=== PATIENT | male | born 1970 | race African-American/Black ===

== ENCOUNTER 2019-01-10 09:07 | Day surgery (SDC) | payer OTHER ==
[~2019-01-10] VITALS: Ht 175.3 cm; Wt 89.5 kg
[~2019-01-10 09:07] MED LIST: LR 1,000 ML IV ONE; NAPR-885 PO; OMEP-218 PO
[2019-01-10] MEDS ORDERED: LIDOCAINE 2% MDV 20 ML VIAL As Ordered ONE (09:55)
[2019-01-10] MEDS ORDERED: dexameTHASONE 4 MG/ML 1ML VIAL (J1100) As Ordered ONE ×2 (09:55→10:34)
[2019-01-10] MEDS ORDERED: BUPIVACAINE HCL 0.5% 30 ML VIAL As Ordered ONE (09:56)
[2019-01-10] MEDS ORDERED: BACITRACIN PWD 50,000 UNITS VIAL As Ordered ONE (09:56)
[2019-01-10] MEDS ORDERED: NEOSPORIN GU IRRIG 20 ML VIAL As Ordered ONE (09:56)
[2019-01-10] MEDS ORDERED: HumaLOG INSULIN (NovoLOG) PER UNIT As Ordered ONE (10:02)
[2019-01-10] MEDS ORDERED: HumaLOG INSULIN (NovoLOG) PER UNIT SC ONE (10:15)
[2019-01-10] MEDS ORDERED: MIDAZOLAM INJ 2 MG/2 ML VIAL (J2250) As Ordered ONE (10:34)
[2019-01-10] MEDS ORDERED: KETOROLAC 60 MG/2 ML VIAL (J1885) As Ordered ONE (10:34)
[2019-01-10] MEDS ORDERED: PROPOFOL 200 MG/20 ML VIAL As Ordered ONE (10:34)
[2019-01-10] MEDS ORDERED: ONDANSETRON 4MG/2ML VIAL (J2405) As Ordered ONE (10:34)
[2019-01-10] MEDS ORDERED: fentaNYL 100 MCG/2 ML INJECTION (J3010) As Ordered ONE (10:34)
[2019-01-10] MEDS ORDERED: LIDOCAINE 2% INJ 100 MG/5 ML SDV (FOR ANES.) As Ordered ONE (10:34)
[2019-01-10] MEDS ORDERED: ePHEDrine SULFATE 25 MG/5 ML(5MG/ML) SYRINGE As Ordered ONE (10:55)
[2019-01-10 11:25] LABS: HEMOGLOBIN A1c 11.8 %
[2019-01-10 12:00] VITALS: BP 130/73
[2019-01-10] MEDS ORDERED: LR 1,000 ML IV SCH (12:00)
[2019-01-10] MEDS ORDERED: PERCOCET 5MG/325MG TAB PO PRN (12:00)
[2019-01-10] MEDS ORDERED: ONDANSETRON 4MG/2ML VIAL (J2405) IV PRN (12:00)
[2019-01-10] MEDS ORDERED: MORPHINE 10 MG/ML 1ML VIAL (J2270) IV PRN (12:00)
--- NOTE | 2019-01-10 15:06 | REP ---
REASON: Foot pain. Air densities are seen along the diaphysis of the first metatarsal of uncertain etiology. This is likely postoperative. Degenerative changes seen involving the first tarsal metatarsal joint and first digit. There is no acute fracture. IMPRESSION: As above. Electronically Signed by Jerry Wellington DO 01/10/2019 03:21 P
--- NOTE | 2019-01-11 10:03 | RO ---
DATE OF PROCEDURE: 01/10/2019 PREOPERATIVE DIAGNOSIS: Hallux limitus deformity, left foot. POSTOPERATIVE DIAGNOSIS: Hallux limitus deformity, left foot. SURGERY PERFORMED: Cheilectomy first metatarsal phalangeal joint, left foot. SURGEON: CHRISTIE Rosas ASSISTANT: None. ANESTHESIA: Local MAC HEMOSTASIS: Ankle pneumatic tourniquet at 200 mmHg for 35 minutes. DESCRIPTION OF OPERATION: On 01/10/2019, this 48-year-old black female was seen for evaluation of a hallux limitus deformity. He was advised his blood sugar is elevated and we could reschedule his surgery in 2-3 months after his blood glucose stabilized. The patient is interested in having a surgical correction and we discussed with the patient utilizing insulin prior to the surgery and normalizing his glucose with metformin 500 mg twice a day for two weeks and then tailor it according to his blood sugars. He is interested in pursuing this avenue. He was taken from the preoperative holding area and brought to the operating room, placed on the operating room table in supine position. Following the induction of IV sedation and local and regional anesthesia, the left lower extremity was prepped and draped in the usual aseptic manner. Ankle pneumatic tourniquet was applied over a well padded site, proximal to the medial and lateral malleolus and inflated to 200 mmHg. Attention was directed to the first metatarsal phalangeal joint where there was noted to be a limited range of motion of the first metatarsal phalangeal joint. At this time a 6 cm incision was placed over the first metatarsal phalangeal joint medial to the extensor tendon. The incision was deepened through the subcutaneous tissues and all coursing venous tributaries were identified, underscored, clamped, cut, ligated, and electrocoagulated as necessary. A linear capsulotomy was then performed in the same plane as the original skin incision. The capsular and periosteal structures were then dissected free in one continuous layer dorsally, medially and laterally, thus creating a capsular periosteal type envelope. This delivered into view the hypertrophied medial eminence of the first metatarsal as well as spurring over the first metatarsal and proximal phalanx. At this time, utilizing a sagittal saw, an osteotomy was performed through the hypertrophied medial eminence. The osteotomy was kept medial to the sesamoidal groove. Spurring noted on the dorsal surface of he first metatarsal was then osteotomized from dorsal to plantar, through and through. The articular cartilage over the head of the first metatarsal had one small area of loss of cartilage. This was microfractured with a 0.045 K-wire. The dorsal aspect of the proximal phalanx had a small area measuring 3 mm x 2 mm This was microfractured with a 0.045 K-wire to promote fibrocartilaginous ingrowth after the first metatarsal and proximal phalanx were remodeled with a rongeur and sagittal saw. Intraoperative C-arm image revealed good resection of the spurs. The wound was then copiously lavaged with dilute bacitracin, neomycin and polymyxin B solution. The plantar plate was released with a metatarsal elevator and the base of he proximal phalanx was released with a Herminia elevator. Attention was directed towards closure where the capsular structures were coapted and maintained with #2-0 Monocryl in a simple interrupted type fashion. Subcutaneous tissues were coapted and maintained using #4-0 Monocryl in a simple interrupted type fashion. Skin incision was coapted and maintained using #4-0 Prolene in a simple interrupted and horizontal mattress type fashion. Following the completion of the surgical procedure, 4 mg of dexamethasone sodium phosphate was instilled proximal to the surgical site. Attention was directed towards bandaging where a sterile compressive bandage was applied consisting of Adaptic, 4x4s, 4x4 splints, Jesusita, Kerlix and Coban. The ankle pneumatic tourniquet was rapidly deflated and instantaneous capillary filling time was noted in digits 1-5 of the patient's left foot. The patient apparently having tolerated the surgical procedure was sent to the recovery room for further monitoring by the anesthesia department. Postoperative instructions will be given upon discharge. The patient will [facility]
== END 2019-01-10 13:10 | disposition home or self-care (01) ==
LOC: M SDC 09:07
PROVIDERS: ATTEND Podiatrist
DX: M20.22 Hallux rigidus, left foot (principal); M79.672 Pain in left foot; E11.9 Type 2 diabetes mellitus without complications; K21.9 Gastro-esophageal reflux disease without esophagitis; F17.210 Nicotine dependence, cigarettes, uncomplicated; Z79.899 Other long term (current) drug therapy
CPT/HCPCS: 28289; 36415; 73630; 83036; 85660; 88300; 97116; J0690; J1100; J1885; J2250; J2405; J3010